=== PATIENT | female | born 1940 | race Caucasian/White ===

== ENCOUNTER 2022-08-02 09:16 | Outpatient (CLI) | payer MEDICARE, SELFPAY ==
--- NOTE | ~2022-08-02 | DEXA_ITS ---
Bone Density Report Name: HUGO KEN Age: 82 Sex: Female Ethnicity: White Date of : 1940 Indication: postmenopausal; screening for osteoporosis; height loss; inflammatory bowel disease; prior fracture; hysterectomy; Referring Provider: TOMA BARBOZA Study: Bone densitometry was performed. Exam Date: August 02, 2022 Accession number: [id number] Bone Density: Region BMD T-score Z-score Classification AP Spine(L1-L4) 0.951 -0.9 1.9 Normal Femoral Neck (Right) 0.605 -2.2 0.2 Osteopenia Total Hip (Right) 0.759 -1.5 0.7 Osteopenia World Health Organization criteria for BMD impression classify patients as: Normal (T-score at or above -1.0), Osteopenia (T-score between -1.0 and -2.5), or Osteoporosis (T-score at or below -2.5). 10-year Fracture Risk: FRAX not reported because: Prior hip or vertebral fracture Treated for osteoporosis Clinical Information Provided by Patient: Have had a previous hip or vertebral fracture Has had a low trauma fracture Is being treated for osteoporosis Has used the following medications: Vitamin D, Calcium Has the following medical conditions: Inflammatory bowel diseases, Hysterectomy Patient maximum height was 67 Menopause Age: 41 No regular weight bearing exercise Does not regularly consume dairy products Drinks caffeinated beverages Onset of menses at age 13 Number of children 0 Impression: The patient has low bone mass, based on the Right Femoral Neck T-score. The patient has risk factors, including: previous fracture. Discussion: It is important to ask patients whether they are taking their medications and to encourage continued and appropriate compliance with their osteoporosis therapies to reduce fracture risk. It is also important to review their risk factors and encourage appropriate calcium and vitamin D intakes, exercise, fall prevention and other lifestyle measures. Follow-Up: Consider a repeat BMD and Vertebral Fracture Assessment (VFA) exam in 2 years or sooner if medically necessary, to reassess this patient's status. Reported by: [facility] on 08/02/2022 9:45:00 AM. Reviewed, dictated and finalized at location [facility]
--- NOTE | ~2022-08-02 | MM_ITS ---
EXAMINATION: MM screening britton BI w blanche HISTORY: Screening mammogram, family history of breast cancer in her mother and sister. TECHNIQUE: Craniocaudal and mediolateral oblique 3-D tomosynthesis images were obtained and synthetic 2-D images were generated. CAD analysis was submitted and interpreted. COMPARISON: No prior mammogram is available for comparison at this institution. BREAST PARENCHYMAL COMPOSITION: The breasts are heterogeneously dense, which may obscure small masses . FINDINGS: No suspicious mass, calcification, or architectural distortion are identified in either trish ast to suggest malignancy. IMPRESSION: 1. No mammographic evidence of malignancy. 2. Recommend routine screening mammography while the patient remains in good health. BI-RADS Category 1: Negative Reviewed, dictated and finalized at location A. T SIGHT ATTACHER IMPRESSION: 1. No mammographic evidence of malignancy. 2. Recommend routine screening mammography while the patient remains in good he alth. BI-RADS Category 1: Negative
== END 2022-08-02 09:17 | disposition home or self-care (01) ==
PROVIDERS: PCP Emergency Medicine; Visit Provider Emergency Medicine
DX: Z12.31 Encounter for screening mammogram for malignant neoplasm of breast (principal); Z78.0 Asymptomatic menopausal state; M85.851 Other specified disorders of bone density and structure, right thigh
CPT/HCPCS: 77063; 77067; 77080

== ENCOUNTER 2023-10-12 16:32 | Outpatient (CLI) | payer MEDICARE, SELFPAY ==
--- NOTE | ~2023-10-12 | MM_ITS ---
EXAMINATION: MM screening britton BI w blanche HISTORY: Screening mammogram TECHNIQUE: Craniocaudal and mediolateral oblique 3-D tomosynthesis images were obtained and synthetic 2-D images were generated. CAD analysis was submitted and interpreted. COMPARISON: 08/02/2022 bilateral screening mammogram BREAST PARENCHYMAL COMPOSITION: The breasts are heterogeneously dense, which may obscure small masses . FINDINGS: There is no evidence of suspicious mass, calcification, or architectural distortion to sugg est malignancy in either breast. There has been no suspicious interval change. IMPRESSION: 1. No mammographic evidence of malignancy. 2. Recommend routine screening mammography in one year. BI-RADS Category 1: Negative Reviewed, dictated and finalized at location A.
== END 2023-10-12 16:33 | disposition home or self-care (01) ==
PROVIDERS: PCP Emergency Medicine; Visit Provider Emergency Medicine
DX: Z12.31 Encounter for screening mammogram for malignant neoplasm of breast (principal)
CPT/HCPCS: 77063; 77067

== ENCOUNTER 2024-11-12 08:14 | Outpatient (CLI) | payer MEDICARE, SELFPAY ==
--- NOTE | ~2024-11-12 | MM_ITS ---
EXAMINATION: MM screening britton BI w blanche HISTORY: Screening mammogram, family history of breast cancer in her mother and sister. TECHNIQUE: Craniocaudal and mediolateral oblique 3-D tomosynthesis images were obtained and synthetic 2-D images were generated. CAD analysis was submitted and interpreted. COMPARISON: 10/12/2023 08/02/2022 BREAST PARENCHYMAL COMPOSITION:Dense: The breasts are heterogeneously dense, which may obscure small masses. FINDINGS: No suspicious mass, calcification, or architectural distortion are identified in either trish ast to suggest malignancy. There has been no suspicious interval change. IMPRESSION: No mammographic evidence of malignancy. Recommend routine screening mammography in one year. BI-RADS Category 1: Negative Reviewed, dictated and finalized at location .
--- OUTSIDE RECORDS SUMMARY | 2024-11-12 08:23 | XMS_ITS ---
Author Organization [facility] Address [address] [place], [place] [id number] Care Team Providers Care Watch Band Assembler Name Role Phone ALIDAJon ZORAIDA Unavailable [phone] Roshan Higuera Unavailable Unavailable Allergies Allergen (clinical drug ingredient) Drug/Non Drug Allergy documented on EMR Reaction Allergy Type Onset Date Status amoxicillin / clavulanate Augmentin Unknown Drug Allergy 06/27/2022 active Iodine Unknown Drug Allergy 06/27/2022 active Compazine Unknown Drug Allergy 06/27/2022 active REASON FOR VISIT Patient presents for at-risk foot care . The patient has painful toenails and calluses that are causing difficulty with ambulation and shoegear. The onset is gradual Encounters Encounter Location Date Provider Diagnosis [facility] [address] [place], [place] [id number] 07/29/2024 ZORAIDA HARDY Tinea unguium B35.1 ; Pain in right foot M79.671 ; Pain in left foot M79.672 ; Atherosclerosis of [place] arteries of extremities with intermittent claudication, bilateral legs I70.213 and Acquired keratosis [keratoderma] palmaris et plantaris L85.1 Assessments Encounter Date Diagnosis (ICD Code) Assessment Notes Treatment Notes Treatment Clinical Notes Section Notes 07/29/2024 Tinea unguium (ICD-10 - B35.1) Nails 1-5 Bilateral were debrided extensively with nail nippers and emery board, reducing length and girth to pink healthy tissue with any subungual debris and necrotic tissue removed Nails 1-5 Bilateral were debrided extensively with nail nippers and emery board, reducing length and girth to pink healthy tissue with any subungual debris and necrotic tissue removed 07/29/2024 Pain in right foot (ICD-10 - M79.671) 07/29/2024 Pain in left foot (ICD-10 - M79.672) 07/29/2024 Atherosclerosis of [place] arteries of extremities with intermittent claudication, bilateral legs (ICD-10 - I70.213) 07/29/2024 Acquired keratosis [keratoderma] palmaris et plantaris (ICD-10 - L85.1) A total of 1 corns or calluses, as described in the note above, were cut and pared utilizing a #15 blade A total of ___ corns or calluses, as described in the note above, were cut and pared utilizing a #15 blade Plan Of Treatment Treatment Notes Assessment Notes Tinea unguium Nails 1-5 Bilateral were debrided extensively with nail nippers and emery board, reducing length and girth to pink healthy tissue with any subungual debris and necrotic tissue removed Nails 1-5 Bilateral were debrided extensively with nail nippers and emery board, reducing length and girth to pink healthy tissue with any subungual debris and necrotic tissue removed Acquired keratosis [keratode rma] palmaris et plantaris A total of 1 corns or calluses, as described in the note above, were cut and pared utilizing a #15 blade A total of ___ corns or calluses, as described in the note above, were cut and pared utilizing a #15 blade Next Appt Details Follow Up: 10 - 12 weeks, Re ason: At-Risk Foot care, sooner if problems develop. Provider Name:ZORAIDA HARDY, 01:00:00 PM, [address], [facility], [place], [place], [id number], Progress Notes * DIOR KENOB:[birth year] (84 yo F)Acc No.[id number]:07/29/2024 Patient: Reese GROVER HUGO Provider: Mignon Hardy DPM :1940 A ge:84 Y S ex:Female Date:07/29/2024 Address:[address] [place] [address], [address], [place], [id number] Subjective: * Chief Complaints: * Diana baker presents for at-risk foot care . The patient has painful toenails and calluses that are causing difficulty with ambulation and shoegear. The onset is gradual * HPI: H PI: General care Diana baker presents to the office for at risk foot care. Patient states that their nails are thickened, elongated and painful. Patient states that it is aggravated by shoe gear. Onset is gradual. Patient denies being diabetic., Patient denies taking prescription blood thinners but does take a daily aspirin., Date last seen by Dr. Higuera was May 2024., Initials LB. * Medical History: * Surgical History: * Hospitalization/Major Diagno stic Procedure: * Family History: F ather: PRN - Father: :: Diabetes,,known absent , :: CAD,,known absent . M other: PRN - Mother: :: Cancer,,known absent . S ister: SIB - Sister: :: Cancer,,known absent , :: Acid reflux,,known absent . * Social History: M igrated Social History: M igrated Social History: Smoking Status : Former tobacco user , History of tobacco use :. * Medications: * Allergies: A ugmentin: Allergy - Onset Date 06/27/2022Iodine: Allergy - Onset Date 06/27/2022ompazine: Allergy - Onset Date 06/27/2022no[Allergies Verified] Objective: * Vitals: * Examination: P hysical Examination: General appearance: A lert, pleasant, well-nourished and in no acute distress , Alert, pleasant, well-nourished and in no acute distress. ? D ermatologic: Skin findings: S kin is thin, atrophic and lacking pedal hair , Skin is thin, atrophic and lacking pedal hair. Hypertrophic / hyperkeratotic lesion: p lantar aspect of the right 3rd metatarsal head. Nail pathology: N ails 1, 2, 3, 4, and 5 bilateral are elongated, thick, discolored, and dystrophic with subungual debris. They are painful to palpation , Nails 1, 2, 3, 4, and 5 bilateral are elongated, thick, discolored, and dystrophic with subungual debris. They are painful to palpation. V ascular: Dorsalis pedis pulse: 1 /4 b ilateral , 1/4 b ilateral. Posterior tibial pulse: 0 /4 bilateral , 0/4 bilateral.? Capillary refill: g reater than 3 seconds , greater than 3 seconds. Edema: N o edema bilateral , No edema bilateral. N eurologic: Gross sensation G rossly intact to light touch. There is negative Tinel's sign , Grossly intact to light touch. There is negative Tinel's sign. ? M usculoskeletal: Muscle Strength M uscle strength is 5/5 in regards to dorsiflexion, plantarflexion, inversion, and eversion in bilateral lower extremities , Muscle strength is 5/5 in regards to dorsiflexion, plantarflexion, inversion, and eversion in bilateral lower extremities. Assessment: * Assessment: 1. T inea unguium - B35.1 (Primary) 2 . P ain in right foot - M79.671 ? 3 . P ain in left foot - M79.672 4 . A therosclerosis of [place] arteries of extremities with intermittent claudication, bilateral legs - I70.213 5 . Acquired keratosis [keratoderma] palmaris et plantaris - L85.1 Plan: * Treatment: 2. A cquired keratosis [keratoderma] palmaris et plantaris Notes: A total of 1 corns or calluses, as described in the note above, were cut and pared utilizing a #15 blade A total of ___ corns or calluses, as described in the note above, were cut and pared utilizing a #15 blade * Procedure Codes: 1 1055 TRIM SKIN LESION, Modifiers: Q8 39701 DEBRIDE NAIL, 6 OR MORE, Modifiers: 59 , Q8 * Follow Up: 1 0 - 12 weeks (Reason: At-Risk Foot care, sooner if problems develop.) * Billing Information: * Visit Code: * Procedure Codes: 23153 TRIM SKIN LESION. Modifiers: Q8 14609 DEBRIDE NAIL, 6 OR MORE. Modifiers: 59, Q8 * [employer] Sign off status: Completed true * Provider: Mignon Hardy DPM Date: 0 07/29/2024 Generated for Lizeth montes de oca/Bonnie/eTransmitting on: 0 11/12/2024 08:23 AM CDT History and Physical Notes * HPI (History of Present Illness) Category Sub-Category Detail Notes Category Not es HPI General care Patient presents to the office for at risk foot care. Patient states that their nails are thickened, elongated and painful. Patient states that it is aggravated by shoe gear. Onset is gradual. Patient denies being diabetic., Patient denies taking prescription blood thinners but does take a daily aspirin., Date last seen by Dr. Higuera was May 2024., Initials LB Examination Category Sub-Category Detail Notes Category Not es Dermatologic Skin findings: Skin is thin, at rophic and lacking pedal hair , Skin is thin, atrophic and lacking pedal hair Nail pathology: Nails 1, 2, 3, 4, an d 5 bilateral are elongated, thick, discolored, and dystrophic with subungual debris. They are painful to palpation , Nails 1, 2, 3, 4, and 5 bilateral are elongated, thick, discolored, and dystrophic with subungual debris. They are painful to palpation Hypertrophic / hyperkeratotic lesion: pl hamilton aspect of the right 3rd metatarsal head Neurologic Gross sensation Grossly intact t o light touch. There is negative Tinel's sign , Grossly intact to light touch. There is negative Tinel's sign Vascular Dorsalis pedis pulse: 1/4 bilateral , 1/4 bilateral Edema: No edema bilateral , No edema bilateral Capillary refill: greater than 3 secon ds , greater than 3 seconds Posterior tibial pulse: 0/4 bilateral , 0/4 bilateral Physical Examination General appearance: Alert, pleasant, well-nourished and in no acute distress , Alert, pleasant, well-nourished and in no acute distress Musculoskeletal Muscle Strength Muscle strength is 5/5 in regards to dorsiflexion, plantarflexion, inversion, and eversion in bilateral lower extremities , Muscle strength is 5/5 in regards to dorsiflexion, plantarflexion, inversion, and eversion in bilateral lower extremities
--- OUTSIDE RECORDS SUMMARY | 2024-11-12 08:23 | XMS_ITS ---
Author Organization [facility] Address [address] [place], [place] [address] Care Team Providers Care Certified Massage Therapist Name Role Phone ANTONY ZORAIDA Unavailable [phone] Roshan Higuera Unavailable Unavailable Allergies Allergen (clinical [...] with ambulation and shoegear. The onset is gradual, Patient presents for at-risk foot care . The patient has painful toenails and calluses that are causing difficulty with ambulation and shoegear. The onset is gradual Immunizations Vaccine Route Administration Date Status Comme nts Influenza, high dose seasonal Unknown 05/27/2024 Refuse d Pneumococcal conjugate PCV 13 Unknown 05/27/2024 Refuse d Vital Signs Weight 174 lbs 05/27/2024 Weight-kg 78.93 kg 05/27/2024 Encounters Encounter Location Date Provider Diagnosis [facility] [address] [place], [place] [id number] 05/27/2024 ZORAIDA HARDY Tinea unguium B35.1 ; Pain in right foot M79.671 ; Pain in left foot M79.672 ; Atherosclerosis of [place] arteries of extremities with intermittent claudication, bilateral legs I70.213 and Acquired keratosis [keratoderma] palmaris et plantaris L85.1 Assessments Encounter Date Diagnosis (ICD Code) Assessment Notes Treatment Notes Treatment Clinical Notes Section Notes 05/27/2024 Tinea unguium (ICD-10 - B35.1) Nails 1-5 Bilateral were debrided extensively with nail nippers and emery board, reducing length and girth to pink healthy tissue with any subungual debris and necrotic tissue removed Nails 1-5 Bilateral were debrided extensively with nail nippers and emery board, reducing length and girth to pink healthy tissue with any subungual debris and necrotic tissue removed 05/27/2024 Pain in right foot (ICD-10 - M79.671) 05/27/2024 Pain in left foot (ICD-10 - M79.672) 05/27/2024 Atherosclerosis of [place] arteries of extremities with intermittent claudication, bilateral legs (ICD-10 - I70.213) 05/27/2024 Acquired keratosis [keratoderma] palmaris et plantaris (ICD-10 [...] Appt Details Follow Up: 10 - 12 weeks. 10 - 12 weeks, Reason: At-Risk Foot care, sooner if problems develop.. At-Risk Foot care, sooner if problems develop. Provider Name:ZORAIDA HARDY, 01:00:00 PM, [address], [address], [id number], Progress Notes * AYDEE KENEDOB:[birth year] (84 yo F)Acc No.[id number]:05/27/2024 Patient: HUGO VARGAS Provider: Mignon Hardy DPM :1940 A ge:84 Y S ex:Female Date:05/27/2024 Address:[facility] [address], [address], [place] [id number] Subjective: * Chief Complaints: * 1 . Patient presents for at-risk foot care . The patient has painful toenails and calluses that are causing difficulty with ambulation and shoegear. The onset is gradual. 2. Patient presents for at-risk foot care . The patient has painful toenails and calluses that are causing difficulty with ambulation and shoegear. The onset is gradual. * HPI: H PI: General care P atient presents to the office for at risk foot care. Patient states that their nails are thickened, elongated and painful. Patient states that it is aggravated by shoe gear. Onset is gradual. Patient denies being diabetic., Patient denies taking prescription blood thinners but does take a daily aspirin., Date last seen by Dr. Higuera was January 2024 Initials HG, .. * Medical History: M edical History Verified. * Surgical History: D enies Past Surgical History. * Hospitalization/Major Diagno stic Procedure: D enies Past Hospitalization. * Family History: F ather: PRN - [...] History of tobacco use :. * Medications: N one * Allergies: A ugmentin: Allergy - Onset Date 06/27/2022, Iodine: Allergy - Onset Date 06/27/2022, Compazine: Allergy - Onset Date 06/27/2022. Objective: * Vitals: W t: 174 lbs, Wt-k.93 kg. * Examination: P hysical Examination: General appearance: [...] - M79.672 4 . A therosclerosis of [place] arteries of extremities with intermittent claudication, bilateral [...] and pared utilizing a #15 blade * Immunizations: Influenza, high dose seasonal (Not administered - Refused: Patient decision) Pneumococcal conjugate PCV 13 (Not administered - Refused: Patient decision) ???Immunization record has been reviewed and updated. * Procedure Codes: 1 1055 TRIM SKIN LESION, Modifiers: Q8 , 12480 DEBRIDE NAIL, 6 OR MORE, Modifiers: 59 , Q8 * Follow Up: 1 0 - 12 weeks. 10 - 12 weeks (Reason: At-Risk Foot care, sooner if problems develop.. At-Risk Foot care, sooner if problems develop.) * Billing Information: * Visit Code: * Procedure Codes: 12002 TRIM SKIN LESION. Modifiers: Q8 39850 DEBRIDE NAIL, 6 OR MORE. Modifiers: 59, Q8 * Sign off status: Completed true * Provider: Mignon Hardy DPM Date: 07/27/2023 Generated for Lizeth montes de oca/Bonnie/Jenny on: 0 11/12/2024 08:22 AM CDT History and Physical Notes * [...] Date last seen by Dr. Higuera was January 2024 Initials HG, . Examination Category Sub-Category Detail Notes Category Not [...]
--- OUTSIDE RECORDS SUMMARY | 2024-11-12 08:23 | XMS_ITS ---
Author Organization [facility] Address [address] [place], [place] [address] Care Team Providers Care Engine Hostler Name Role Phone ANTONY ZORAIDA Unavailable [phone] Roshan Higuera Unavailable Unavailable Allergies Allergen (clinical [...] ambulation and shoegear. The onset is gradual Vital Signs Height 66.00 in 10/28/2024 Weight 174 lbs 10/28/2024 BMI 28.08 kg/m2 10/28/2024 Height-cm 167.64 cm 10/28/2024 Weight-kg 78.93 kg 10/28/2024 Encounters Encounter Location Date Provider Diagnosis [facility] [address] [place], [place] [id number] 10/28/2024 ZORAIDA HARDY Tinea unguium B35.1 ; Pain in right foot M79.671 ; Pain in left foot M79.672 ; Atherosclerosis of [place] arteries of extremities with intermittent claudication, bilateral legs I70.213 and Acquired keratosis [keratoderma] palmaris et plantaris L85.1 Assessments Encounter Date Diagnosis (ICD Code) Assessment Notes Treatment Notes Treatment Clinical Notes Section Notes 10/28/2024 Tinea unguium (ICD-10 - B35.1) Nails 1-5 Bilateral were debrided extensively with nail nippers and emery board, reducing length and girth to pink healthy tissue with any subungual debris and necrotic tissue removed Nails 1-5 Bilateral were debrided extensively with nail nippers and emery board, reducing length and girth to pink healthy tissue with any subungual debris and necrotic tissue removed 10/28/2024 Pain in right foot (ICD-10 - M79.671) 10/28/2024 Pain in left foot (ICD-10 - M79.672) 10/28/2024 Atherosclerosis of [place] arteries of extremities with intermittent claudication, bilateral legs (ICD-10 - I70.213) 10/28/2024 Acquired keratosis [keratoderma] palmaris et plantaris (ICD-10 [...] Name:ZORAIDA HARDY, 01:00:00 PM, [address], [address], [id number], Progress Notes * DIOR KENOB:[birth year] (84 yo F)Acc No.[id number]:10/28/2024 Patient: Reese HUGO GROVER Provider: Mignon Hardy DPM :1940 A ge:84 Y S ex:Female Date:10/28/2024 Address:[address], [place] [id number] Subjective: * Chief Complaints: * 1 . Patient presents for at-risk foot care . The patient has painful toenails and calluses that are causing difficulty with ambulation and shoegear. The onset is gradual. * HPI: H PI: General care P olivia presents to the office for at risk foot care. Patient states that their nails are thickened, elongated and painful. Patient states that it is aggravated by shoe gear. Onset is gradual. Patient denies being diabetic. P olivia denies taking prescription blood thinners but does take a daily aspirin. D ate last seen by Dr. Higuera was August 2024., Initials LB. * Medical History: M edical History Verified. * Family History: F ather: PRN - [...] * Vitals: W t: 174 lbs, Wt-k.93 kg, Ht: 66.00 in, Ht-cm: 167.64 cm, BMI: 28.08 Index, Body Surface Area: 1.92. * Examination: P hysical Examination: General appearance: [...] - M79.672 4 . A therosclerosis of [place] arteries of extremities with intermittent claudication, bilateral [...] pared utilizing a #15 blade * Immunizations: Immunization record has been reviewed and updated. * Procedure Codes: 1 1055 TRIM SKIN LESION, Modifiers: Q8 , 85392 DEBRIDE NAIL, 6 OR MORE, Modifiers: 59 , Q8 * Follow Up: 1 0 - 12 weeks (Reason: At-Risk Foot care, sooner if problems develop.) * Billing Information: * Visit Code: * Procedure Codes: 56785 TRIM SKIN LESION. Modifiers: Q8 30003 DEBRIDE NAIL, 6 OR MORE. Modifiers: 59, Q8 * Electronic signature of ZORAIDA HARDY DPM on 11/12/2024 at 08:23 AM CDT Sign off status: Pending * Provider: Mignon Hardy DPM Date: 0 10/28/2024 Generated for Lizeth montes de oca/Bonnie/Jenny on: 0 11/12/2024 08:23 AM CDT History and Physical Notes * HPI (History of Present Illness) Category Sub-Category Detail Notes Category Not es HPI General care Patient presents to the office for at risk foot care. Patient states that their nails are thickened, elongated and painful. Patient states that it is aggravated by shoe gear. Onset is gradual. Patient denies being diabetic. Patient denies taking prescription blood thinners but does take a daily aspirin. Date last seen by Dr. Higuera was August 2024., Initials LB Examination Category Sub-Category Detail [...]
--- OUTSIDE RECORDS SUMMARY | 2024-11-12 08:23 | XMS_ITS | Patient Health Record ---
Author Organization [facility] Address [address] [facility] [address] [place], [place] [id number] Care Team Providers Care Pile Driver Operator Name Role Phone ZORAIDA HARDY Unavailable [phone] Roshan Higuera Unavailable Unavailable Allergies Allergen (clinical drug ingredient) Drug/Non Drug Allergy documented on EMR Reaction Allergy Type Onset Date Status amoxicillin / clavulanate Augmentin Unknown Drug Allergy 06/27/2022 active Iodine Unknown Drug Allergy 06/27/2022 active Compazine Unknown Drug Allergy 06/27/2022 active Reason For Referral No Information Immunizations Vaccine Route Administration Date Status Comme nts Influenza, high dose seasonal Unknown 05/01/2023 Admini stered Influenza, high dose seasonal Unknown 05/27/2024 Refuse d Pneumococcal conjugate PCV 13 Unknown 05/27/2024 Refuse d Vital Signs Height-cm 167.64 cm 10/28/2024 Weight-kg 78.93 kg 10/28/2024 Height 66.00 in 10/28/2024 Weight 174 lbs 10/28/2024 BMI 28.08 kg/m2 10/28/2024 Encounters Encounter Location Date Provider Diagnosis [facility] [address] [place], [place] [id number] 10/28/2024 ZORAIDA SNOOK Tinea unguium B35.1 ; Pain in right foot M79.671 ; Pain in left foot M79.672 ; Atherosclerosis of [place] arteries of extremities with intermittent claudication, bilateral legs I70.213 and Acquired keratosis [keratoderma] palmaris et plantaris L85.1 [facility] [address] [place], [place] [id number] 12/04/2023 ZORAIDA SNOOK Tinea unguium B35.1 ; Pain in right toe(s) M79.674 ; Pain in left toe(s) M79.675 and Atherosclerosis of [place] arteries of extremities with intermittent claudication, bilateral legs I70.213 [facility] [place] [address] [place] [id number] 02/26/2024 ZORAIDA SNOOK Tinea unguium B35.1 ; Pain in right foot M79.671 ; Pain in left foot M79.672 ; Atherosclerosis of [place] arteries of extremities with intermittent claudication, bilateral legs I70.213 and Acquired keratosis [keratoderma] palmaris et plantaris L85.1 [facility] [place] [address] [place] [id number] 05/27/2024 ZORAIDA SNOOK Tinea unguium B35.1 ; Pain in right foot M79.671 ; Pain in left foot M79.672 ; Atherosclerosis of [place] arteries of extremities with intermittent claudication, bilateral legs I70.213 and Acquired keratosis [keratoderma] palmaris et plantaris L85.1 [facility] [place] [address] [place] [id number] 07/29/2024 ZORAIDA SNOOK Tinea unguium B35.1 ; Pain in right foot M79.671 ; Pain in left foot M79.672 ; Atherosclerosis of [place] arteries of extremities with intermittent claudication, bilateral legs I70.213 and Acquired keratosis [keratoderma] palmaris et plantaris L85.1 Assessments Encounter Date Diagnosis (ICD Code) Assessment Notes Treatment Notes Treatment Clinical Notes Section Notes 12/04/2023 Tinea unguium (ICD-10 - B35.1) FUNGAL TOENAILS: Discussed various treatment options for fungal toenails including debridement, topical antifungals, oral antifungals, toenail avulsion, or toenail matrixectomy. NAIL DEBRIDEMENT: Nails 1-5 Bilateral were debrided extensively with nail nippers and emery board, reducing length and girth to pink healthy tissue with any subungual debris and necrotic tissue removed. Clear Nails: Dispensed ClearNails topical antifungal treatment (ciclopirox, terbinafine, and flucanzole.) Educated patient on its use and effect. 12/04/2023 Pain in right toe(s) (ICD-10 - M79.674) 02/26/2024 Tinea unguium (ICD-10 - B35.1) Nails 1-5 Bilateral were debrided extensively with nail nippers and emery board, reducing length and girth to pink healthy tissue with any subungual debris and necrotic tissue removed 02/26/2024 Pain in right foot (ICD-10 - M79.671) 05/27/2024 Tinea unguium (ICD-10 - B35.1) Nails [...] in right foot (ICD-10 - M79.671) 07/29/2024 Tinea unguium (ICD-10 - B35.1) Nails [...] in right foot (ICD-10 - M79.671) 10/28/2024 Tinea unguium (ICD-10 - B35.1) Nails [...] in left foot (ICD-10 - M79.672) 07/29/2024 Pain in left foot (ICD-10 - M79.672) 05/27/2024 Pain in left foot (ICD-10 - M79.672) 02/26/2024 Pain in left foot (ICD-10 - M79.672) 12/04/2023 Pain in left toe(s) (ICD-10 - M79.675) 12/04/2023 Atherosclerosis of [place] arteries of extremities with intermittent claudication, bilateral legs (ICD-10 - I70.213) 02/26/2024 Atherosclerosis of [place] arteries of extremities with intermittent claudication, bilateral legs (ICD-10 - I70.213) 05/27/2024 Atherosclerosis of [place] arteries of extremities with intermittent claudication, bilateral legs (ICD-10 - I70.213) 07/29/2024 Atherosclerosis of [place] arteries of extremities with intermittent claudication, bilateral legs (ICD-10 - I70.213) 10/28/2024 Atherosclerosis of [place] arteries of extremities with intermittent claudication, bilateral legs (ICD-10 - I70.213) 10/28/2024 Acquired keratosis [keratoderma] palmaris et plantaris (ICD-10 - L85.1) A total of 1 corns or calluses, as described in the note above, were cut and pared utilizing a #15 blade A total of ___ corns or calluses, as described in the note above, were cut and pared utilizing a #15 blade 07/29/2024 Acquired keratosis [keratoderma] palmaris et plantaris (ICD-10 - L85.1) A total of 1 corns or calluses, as described in the note above, were cut and pared utilizing a #15 blade A total of ___ corns or calluses, as described in the note above, were cut and pared utilizing a #15 blade 05/27/2024 Acquired keratosis [keratoderma] palmaris et plantaris (ICD-10 - L85.1) A total of 1 corns or calluses, as described in the note above, were cut and pared utilizing a #15 blade A total of ___ corns or calluses, as described in the note above, were cut and pared utilizing a #15 blade 02/26/2024 Acquired keratosis [keratoderma] palmaris et plantaris (ICD-10 - L85.1) A total of 1 corns or calluses, as described in the note above, were cut and pared utilizing a #15 blade Plan Of Treatment Next Appt Details Provider Name:ZORAIDA HARDY, 01:00:00 PM, [address] [facility], [place], [place], [id number], Insurance Providers Payer Name Payer Address Payer Phone Subscriber Number Group Number Insured Name Patient Relationship to Insured Coverage Start Date Coverage End Date Medicare Part B [place] [address] [place] [address] [id number] HUGO KEN Self - patient is the insured [facility] [address] [address] [place], [place] [id number] HUGO WILLETT Self - patient is the insured Medical (General) History Surgical History Surgery Date(Month/Year) Hospitalization History Reason Date(Month/Year)
--- OUTSIDE RECORDS SUMMARY | 2024-11-12 08:23 | XMS_ITS | Continuity of Care Document ---
Author Organization [facility] Address [address] [place] [address] Phone Care Team Providers Care Oil Inspector Name Role Phone Zamzam Loera Unavailable Unavailable Advance Directives Directive Yes / No Effective Date File Name No Information Encounters Encounter Description Practice Location Reason(s) For Visit Diagnoses Date Provider Providers Copied on Encounter [facility], [address], [place], [place], [id number], [place] tel:[phone] [address] [place] [address] No Information [address] Wyman. [address] [facility], [address], [place], [place], [id number], [place]. tel:[phone] Family History Family Member Type Diagnosis Age At Onset No Information Payers Payer name Insurance type Covered constitution party ID Authoriza tion(s) No Information Social [...]
== END 2024-11-12 08:15 | disposition home or self-care (01) ==
PROVIDERS: PCP Emergency Medicine; Visit Provider Nurse Practitioner Obstetrics & Gynecology
DX: Z12.31 Encounter for screening mammogram for malignant neoplasm of breast (principal)
CPT/HCPCS: 77063; 77067

== ENCOUNTER 2025-03-19 02:01 | Day surgery (SDC) | payer MEDICARE, SELFPAY ==
[2025-03-10 11:32] VITALS: BMI 29.9
[2025-03-19 10:10] VITALS: BP 134/63; PULSE 82; RESP 16; TEMP 36.5; O2SAT 95; BMI 29.4
[2025-03-19] MEDS: LACTATED RINGERS 1,000 ML 150 ML IV CONT (10:33)
--- NOTE | 2025-03-19 10:36 | P.PNAN_ITS ---
Anes - Initial Pre Proc Eval Procedure: Operation Date: 03/19/25 11:30 Proposed Procedures p Flexible Sigmoidoscopy - Flako Blount MD Date/Time: 03/19/25 10:36 Surgeon: Flako Blount MD Pre Op Diagnosis: Hemorrhage of anus and rectum Patient Data Age: 84 Gender: F Height: 1.68 m Weight: 82.6 kg Last Vital Signs Temp 36.5 C 03/19/25 10:10 Pulse 82 03/19/25 10:10 Resp 16 03/19/25 10:10 BP 134/63 03/19/25 10:10 Pulse Ox 95 03/19/25 10:10 O2 Del Method Room Air 03/19/25 10:10 Allergies Allergy/AdvReac Type Severity Reaction Status Date / Time Iodinated Contrast Media Allergy Intermediate Rash Verified 03/19/25 10:18 amoxicillin (From Augmentin) AdvReac Severe Vomiting Verified 03/19/25 10:18 clavulanic acid (From AdvReac Severe Vomiting Verified 03/19/25 10:18 Augmentin) prochlorperazine (From AdvReac Severe Hives Verified 03/19/25 10:18 Compazine) Home Medications ?Medication ?Instructions ?Recorded ?Confirmed ?Type acetaminophen 500 mg tablet 500 mg PO Q6H PRN pain 11/0503/10/25 History (Tylenol Extra Strength) multivitamin 1 tablet PO DAILY 05/20/22 0 03/19/25 History cholecalciferol (vitamin D3) 50 50 mcg PO DAILY #90 ca ps 08/17/22 03/19/25 Rx mcg (2,000 unit) capsule aspirin 81 mg tablet,delayed 81 mg PO DAILY 01/24/24 0 03/19/25 History release (Adult Low Dose Aspirin) amlodipine 5 mg tablet See Rx Instructions .Route 0 08/22/24 03/19/25 Rx .COMPLEX #90 tabs duloxetine 60 mg capsule,delayed See Rx Instructions . Route 08/22/24 03/19/25 Rx release .COMPLEX #180 caps rosuvastatin 10 mg tablet See Rx Instructions .Route 0 08/22/24 03/19/25 Rx .COMPLEX #90 tabs Patient hx anesthesia problems: none Family hx anesthesia problems: none Results Review: All pre-operative results and documents have been reviewed as part of the pre- operative evaluation. [facility] Past Medical History Medical History (Updated 03/18/25 @ 14:00 by Rolando Vasques DO) HLD (hyperlipidemia) HTN (hypertension) Allergies Urinary incontinence Vitamin D deficiency Migraine GERD (gastroesophageal reflux disease) Anemia History of depression Surgical History Surgical History S/P insertion of spinal cord stimulator History of hip surgery [place] teeth removed History of bladder surgery S/P appendectomy Hx of bilateral cataract extraction Hx of hernia repair Hx of hysterectomy Family History Family History Father Diabetes mellitus Hypertension Mother Breast cancer Hypertension Ovarian cancer Social History Social History Smoking packs per day: 1 Smoking cigarettes per day: 20.0 Years smoked: 30 Smoking pack-years: 30.00 Smoking status: Former smoker Tobacco type: cigarettes Smoking end date: 07/17/96 Alcohol intake: current Alcohol use details: rarely Substance use: never Substance use type: does not use Do You Feel Safe in your Home?: Yes Lack of Transportation: No Lack of Food: Never True Current Housing: I Have Housing Concerned About Future Housing: No Difficulty Paying Gas/Electric Bills: No Difficulty Paying for Meds: No Currently Unemployed: No Education: Master's Degree or Higher Difficulty w/ Childcare or Family Care: No Living arrangements: assisted living Additional living arrangements comments: [facility] Spiritual care concerns: No Anes - Eval Final PreProcedure Day of Procedure 03/19/25 10:36 Patient weight: overweight Heart: regular rate and rhythm Lungs: clear to auscultation Airway: Mallampati scale class II Neurological: alert and oriented Last oral intake: >/= 8 hours ASA classification: III Emergent: no Anesthetic plan: proceed Anesthesia type and monitoring: general GIVS and standard monitoring Results Review: All pre-operative results and documents have been reviewed as part of the pre- operative evaluation. Informed Consent: The patient's anesthetic plan and its attendant risks and benefits were discussed with the patient/family/POA. Questions were solicited and answers provided to the satisfaction of the patient/family/POA.
--- NOTE | 2025-03-19 10:44 | P.HP_ITS ---
H&P: HPI History of Present Illness Date/Time: 03/19/25 10:44 Chief Complaint: Rectal bleeding Narrative: the patient has been having recurrent rectal bleeding, bright red type. Not associated with abdominal pain or tenesmus. Her last colonoscopy was 10 years ago approximately, and was reportedly normal. She has seen Dr. Santiago, and hemorrhoids were not evident. She is referred for sigmoidoscopy. Review of Systems Review of Systems: All systems reviewed & are unremarkable except as noted in HPI and below PMFSH Past Medical History Medical History (Updated 03/18/25 @ 14:00 by Rolando Vasques DO) HLD (hyperlipidemia) HTN (hypertension) Allergies Urinary incontinence Vitamin D deficiency Migraine GERD (gastroesophageal reflux disease) Anemia History of depression Surgical History Surgical History S/P insertion of spinal cord stimulator History of hip surgery [place] teeth removed History of bladder surgery S/P appendectomy Hx of bilateral cataract extraction Hx of hernia repair Hx of hysterectomy Family History Family History Father Diabetes mellitus Hypertension Mother Breast cancer Hypertension Ovarian cancer Social History Social History Smoking packs per day: 1 Smoking cigarettes per day: 20.0 Years smoked: 30 Smoking pack-years: 30.00 Smoking status: Former smoker Tobacco type: cigarettes Smoking end date: 07/17/96 Alcohol intake: current Alcohol use details: rarely Substance use: never Substance use type: does not use Do You Feel Safe in your Home?: Yes Lack of Transportation: No Lack of Food: Never True Current Housing: I Have Housing Concerned About Future Housing: No Difficulty Paying Gas/Electric Bills: No Difficulty Paying for Meds: No Currently Unemployed: No Education: Master's Degree or Higher Difficulty w/ Childcare or Family Care: No Living arrangements: assisted living Additional living arrangements comments: [facility] Spiritual care concerns: No Meds Home Medications and Allergies Home Medications ?Medication ?Instructions ?Recorded ?Confirmed ?Type acetaminophen 500 mg tablet 500 mg PO Q6H PRN pain 11/0503/10/25 History (Tylenol Extra Strength) multivitamin 1 tablet PO DAILY 05/20/22 0 03/19/25 History cholecalciferol (vitamin D3) 50 50 mcg PO DAILY #90 ca ps 08/17/22 03/19/25 Rx mcg (2,000 unit) capsule aspirin 81 mg tablet,delayed 81 mg PO DAILY 01/24/24 0 03/19/25 History release (Adult Low Dose Aspirin) amlodipine 5 mg tablet See Rx Instructions .Route 0 08/22/24 03/19/25 Rx .COMPLEX #90 tabs duloxetine 60 mg capsule,delayed See Rx Instructions . Route 08/22/24 03/19/25 Rx release .COMPLEX #180 caps rosuvastatin 10 mg tablet See Rx Instructions .Route 0 08/22/24 03/19/25 Rx .COMPLEX #90 tabs Allergies Allergy/AdvReac Type Severity Reaction Status Date / Time Iodinated Contrast Media Allergy Intermediate Rash Verified 03/19/25 10:18 amoxicillin (From Augmentin) AdvReac Severe Vomiting Verified 03/19/25 10:18 clavulanic acid (From AdvReac Severe Vomiting Verified 03/19/25 10:18 Augmentin) prochlorperazine (From AdvReac Severe Hives Verified 03/19/25 10:18 Compazine) Vital Signs Vital Signs - 24 hr 03/19/25 10:10 Temperature 97.7 F Pulse Rate 82 Respiratory Rate 16 Blood Pressure 134/63 Pulse Oximetry 95 Oxygen Delivery Room Air Exam Const: General: cooperative and healthy appearing Resp: Effort & Inspection: normal respiratory effort and able to speak in complete sentences Auscultation: clear to auscultation bilaterally Cardio: Rate: regular rate Rhythm: regular rhythm GI: Inspection: normal to inspection GI Palp: No No hepatosplenomegaly present Auscultation: normal bowel sounds Rectal Exam: deferred Skin: General skin exam: normal color Psych: Appearance: grossly normal Mental Status: mental status grossly normal Assessment and Plan Assessment and plan (1) Rectal bleeding: Code(s): K62.5 - Hemorrhage of anus and rectum Status: Acute Assessment and Plan: The patient is deemed a good candidate for the procedure. Consent signed. Will proceed.
[2025-03-19 11:05] VITALS: BP 113/51; PULSE 74; RESP 20; O2SAT 97
[2025-03-19 11:15] VITALS: BP 117/62; PULSE 76; RESP 20; O2SAT 98
[2025-03-19 11:25] VITALS: BP 138/72; PULSE 73; RESP 20; O2SAT 98
== END 2025-03-19 11:43 | disposition home or self-care (01) ==
PROVIDERS: Visit Provider Internal Medicine Gastroenterology
PROC: 0DJD8ZZ Inspection of Lower Intestinal Tract, Via Natural or Artificial Opening Endoscopic (ICD-10-PCS; CPT 45330; principal; 2025-03-19 11:30)
DX: K62.5 Hemorrhage of anus and rectum (principal); K64.8 Other hemorrhoids; Z87.891 Personal history of nicotine dependence
CPT/HCPCS: 45330; J2003; J2704; J7120

== ENCOUNTER 2025-04-16 15:07 | Outpatient (CLI) | payer MEDICARE, SELFPAY ==
--- OUTSIDE RECORDS SUMMARY | 2015-07-02 19:00 | XMS_ITS | Continuity of Care Document ---
Author Organization [facility] Address [address] [place] [address] Phone Care Team Providers Care Bicycle Fitter Name Role Phone Zamzam Loera Unavailable Unavailable Advance Directives Directive Yes / No Effective Date File Name No Information Encounters Encounter Description Practice Location Reason(s) For Visit Diagnoses Date Provider Providers Copied on Encounter [facility], [address], [place], [place], [id number], [place] tel:[phone] [address] [place] [address] No Information 5 Cuauhtemoc Wyman. [address] [facility], [address], [place], [place], [id number], [place]. tel:[phone] Family History Family Member Type Diagnosis Age At Onset No Information Payers Payer name Insurance type Covered alliance party ID Authoriza tion(s) No Information Social History Type Description Quantity Date Captured Comments Sex Female Smoking Status No Information Chief Complaint And Reason For Visit No Information Reason For Referral Reason For Referral No Information History Of Present Illness Encounter Date Complaint History Of Prese nt Illness No Information Functional Status Date Functional Assessmen t No Information Instructions Date Instruction Additional Infor mation No Information Assessments Type Assessment Date No Information Patient Care Teams Name Effective Dates (start - stop) Status Members No Information
--- NOTE | ~2025-04-16 | CT_ITS ---
EXAMINATION: CT brain rena lopes, 04/16/2025 15:31 CDT HISTORY: R41.3 - Other amnesia COMPARISON: No comparisons available. Technique: Axial images obtained of the brain without contrast. One or more of the following dose reduction techniques were used: automated exposure control, adjustment of the mA and/or kV according to patient size, use of iterative reconstruction technique. Findings: No acute infarct or parenchymal hemorrhage. No abnormal mass or mass effect. No midline shift. No extra-axial fluid collections. No hydrocephalus. Mastoid air cells unremarkable. Sinuses and orbits unremarkable. No acute fracture. No significant facial or scalp soft tissue swelling evident. No radiopaque foreign body is seen. Impression: 1.No acute intracranial abnormality. Reviewed, dictated and finalized at location P. Impression: 1.No acute intracranial abnormality.
== END 2025-04-16 15:08 | disposition home or self-care (01) ==
PROVIDERS: PCP Family Medicine; Visit Provider Family Medicine
DX: R41.3 Other amnesia (principal)
CPT/HCPCS: 70450

== ENCOUNTER 2025-06-18 08:39 | Outpatient (CLI) | payer MEDICARE, SELFPAY ==
--- NOTE | 2025-07-15 10:26 | WPDSLEEPSTUD ---
Sleep Study Date of Study: 06/18/25 Ordering Provider: Mandeep Livingston MD Interpreting Physician: Lizett Randall DO Sleep Study Type: Polysomnogram Height: 1.68 m Weight: 83.461 kg Body Mass Index: 29.7 Neck Circumference (inches): 16 [place]: 1 Reason for Sleep Study Nocturia Sleep History The patient is an 85-year-old female that had a sleep study ordered by her primary care physician for evaluation of sleep apnea. The patient denies awakening from sleep short of breath. She rarely awakens at night with heartburn, belching or cough. She denies snoring. She rarely has trouble sleeping when she has a cold. She denies waking up gasping for air throughout the night. She denies having breathing problems at night observed by herself or others. She denies sweating excessively at night. She denies having heart palpitations or irregular heartbeats during the night. She occasionally falls asleep during the day but never while driving. She denies sleep paralysis, cataplexy and hypnagogic/ hypnopompic hallucinations. She denies having trouble at school or work due to sleepiness. She denies feeling afraid of going to sleep. She rarely has nightmares. She occasionally remembers her dreams. She rarely has thoughts racing through her mind. She occasionally feels sad, depressed and anxious. She occasionally has muscular tension. She denies noticing parts of her body jerk. She denies kicking during the night. She denies having crawling and aching feelings in her legs. She rarely has leg pain during the night. She occasionally grinds her teeth during sleep but never awakens with morning jaw pain. She is rarely bothered by pain during the day but never awakened by pain during the night. She rarely wakes up feeling stiff in the morning. She rarely wakes up with sore or achy muscles. She rarely wakes up with pain in the neck, spine and other joints. She goes to bed between 11:00 p.m. to midnight. It takes her 15 minutes to fall asleep. She wakes up 3 times throughout the night to urinate and is able fall back asleep within 10 minutes. She wakes up between 7 and 8:00 a.m.. She typically gets 8 hours of sleep per night. She currently lives alone in an apartment but is staying at a [facility]. She denies consuming any caffeinated beverages within 2 hours of bedtime. She denies engaging in physical exercise before bedtime. She will watch television before falling asleep. She denies reading before falling asleep. She will occasionally take naps in afternoon or the evening but they are not refreshing. She consumes 1 cup of decaffeinated beverage per day. She quit smoking cigarettes 28 years ago. She denies alcohol and recreational drug use. [facility] Past Medical History Medical History HLD (hyperlipidemia) HTN (hypertension) Allergies Urinary incontinence Vitamin D deficiency Migraine GERD (gastroesophageal reflux disease) Anemia History of depression Surgical History Surgical History History of banding of hemorrhoid 05/08/2025 Dr. Slater S/P insertion of spinal cord stimulator History of hip surgery [place] teeth removed History of bladder surgery S/P appendectomy Hx of bilateral cataract extraction Hx of hernia repair Hx of hysterectomy Family History Family History Father Diabetes mellitus Hypertension Mother Breast cancer Hypertension Ovarian cancer Social History Social History Smoking packs per day: 1 Smoking cigarettes per day: 20.0 Years smoked: 30 Smoking pack-years: 30.00 Smoking status: Former smoker Tobacco type: cigarettes Smoking end date: 07/17/96 Alcohol intake: never Alcohol use details: rarely Substance use: never Substance use type: does not use Lack of Transportation: No Lack of Food: Never True Current Housing: I Have Housing Concerned About Future Housing: No Difficulty Paying Gas/Electric Bills: No Difficulty Paying for Meds: No Currently Unemployed: No Education: Master's Degree or Higher Difficulty w/ Childcare or Family Care: No Living arrangements: assisted living Additional living arrangements comments: [facility] Spiritual care concerns: No Medications Home Medications ?Medication ?Instructions ?Recorded ?Confirmed ?Type acetaminophen 500 mg tablet 500 mg PO Q6H PRN pain 05/20/22 07/07/25 History (Tylenol Extra Strength) multivitamin 1 tablet PO DAILY 05/20/22 07/07/25 History cholecalciferol (vitamin D3) 50 50 mcg PO DAILY #90 caps 08/17/22 07/07/25 Rx mcg (2,000 unit) capsule aspirin 81 mg tablet,delayed 81 mg PO DAILY 01/24/24 07/07/25 History release (Adult Low Dose Aspirin) d-mannose .Route 03/20/25 07/07/25 History amlodipine 5 mg tablet See Rx Instructions .Route 05/07/25 07/07/25 Rx .COMPLEX #90 tabs rosuvastatin 10 mg tablet See Rx Instructions .Route 05/07/25 07/07/25 Rx .COMPLEX #90 tabs donepezil 10 mg tablet 10 mg PO QHS #90 tabs 06/06/25 07/07/25 Rx duloxetine 60 mg capsule,delayed See Rx Instructions .Route .COMPLEX 07/04/25 07/07/25 History release Sleep Procedure A full night polysomnogram using the madvertise multi-channel system recorded the standard physiologic parameters including EEG, EOG, submentalis EMG, anterior tibialis EMG, EKG, body position, nasal and oral airflow using nasal pressure sensor and thermistor.? Respiratory parameters of chest and abdominal movements were recorded with Respiratory Inductance Plethysmography belts. Oxygen saturation was recorded by pulse oximetry. Video monitoring was also performed. Sleep stages, periodic limb movements, and EEG arousals were scored in 30 second epochs according to the criteria of the AASM Scoring Manual. The Apnea-Hypopnea Index was calculated using CMS guidelines for definition of hypopnea with 4% O2 desaturations while scoring respiratory events. Sleep Architecture The total recording time was 433.9 minutes.? The total sleep time was 171.0 minutes. Sleep latency was 158.7 minutes. REM latency was 264.5 minutes. Sleep efficiency was 39.4%. The patient had 20 awakenings for an awakening index of 7.0. Wake after sleep onset time was 104.0 minutes. The patient spent 13.5 minutes, 7.9% of total sleep time in Stage N1. The patient spent 123.0 minutes, 71.9% in Stage N2. The patient spent 34.0 minutes, 19.9% in Stage N3. The patient spent 0.5 minutes, 0.3% in Stage REM sleep. Respiratory Analysis The patient had 6 hypopneas for an overall Apnea Hypopnea Index of 2.1. The REM Apnea Hypopnea Index was 120.0. The NREM Apnea Hypopnea Index was 2.1. The patient had a Central Apnea Hypopnea Index of 0. There was no evidence of Tigre-Guy Respirations. Arousals There were 111 total arousals for an arousal index of 38.9. There were 60 spontaneous arousals for an index of 21.1. There were 8 arousals due to respiratory events for an index of 2.8. There were 23 arousals due to periodic limb movements for an index of 8.1.? There were 15 arousals due to isolated limb movements for an index of 5.3. Periodic Limb Movements The patient had 47 isolated limb movements with an index of 16.5. The patient had 63 periodic limb movements with an index of 22.1, which is elevated (normal < 15). Patient had a total of 110 limb movements with a total limb movement index of 38.6. Oximetry Data The patient had an average oxygen saturation of 90.5% in sleep with a minimum oxygen saturation of 87.0% and a maximum oxygen saturation of 93.0%. The patient had 6 oxygen desaturations that were 4% or greater resulting in an Oxygen Desaturation Index of 2.1.? The patient spent 4.0 minutes, 0.9% of total sleep time with an oxygen saturation below 88%. Snoring Profile Mild snoring was present throughout the study. Cardiac Profile The EKG showed normal sinus rhythm with rare PVCs.?The patient had an average pulse rate of 73.9 bpm with a minimum pulse of rate of 64.0 bpm and a maximum pulse rate of 93.0 bpm.? EEG Profile No signs of seizure activity seen. Assessment and Plan Assessment and Plan (1) PLMD (periodic limb movement disorder): Code(s): G47.61 - Periodic limb movement disorder Status: Acute Assessment and Plan: The patient had an overall AHI of 2.1 with desaturation down to 86%. This is not consistent with sleep-disordered breathing. The patient had a significant number of limb movements during the study with the majority being periodic in nature. Approximately 33% of the periodic limb movements caused arousals in the patient's sleep. The patient's sleep history does not suggest Restless Leg Syndrome. I recommend that the patient have a serum ferritin drawn for evaluation of iron deficiency anemia. If the patient has a serum ferritin less than 75 ng/mL, I recommend starting a daily iron supplement and a Vitamin C supplement for better absorption. If the serum ferritin is greater than 75 ng/mL, I recommend starting a dopamine agonist and titrating the dose until symptoms resolve. There are nonpharmacological methods to treat limb movements including daily exercise, stretching calf muscles before bed, avoiding excessive amounts of caffeine and alcohol, vitamin B supplementation, magnesium lotion massaged into legs before bed, and use of a weighted blanket. Data The data obtained during this sleep study is adequate for interpretation. Certification This sleep study has been reviewed by a board certified sleep medicine physician.
[2025-07-21 13:17] VITALS: BMI 29.7
== END 2025-06-19 06:06 | disposition home or self-care (01) ==
PROVIDERS: PCP Family Medicine; Visit Provider Family Medicine
DX: G47.30 Sleep apnea, unspecified (principal); G47.61 Periodic limb movement disorder
CPT/HCPCS: 95810